=== PATIENT | female | born 1940 | race Caucasian/White ===

== ENCOUNTER 2016-12-04 08:21 | Emergency (ER) | payer MEDICARE ==
[~2016-12-04 08:21] MED LIST: Sodium Chloride 0.9% 100 ML BAG ONE
[2016-12-04 09:30] LABS: Anion Gap 13 mmol/L (10-20); BUN (Urea Nitrogen) 13 mg/dL (9.8-20.1); Calc. Creatinine Clearance 0 mL/min (70-130); Calcium 8.7 mg/dL (7.8-10.44); Carbon Dioxide 25 mmol/L (23-31); Chloride 104 mmol/L (98-107); Estimated GFR-MDRD 76; Glucose 104 mg/dL (83-110); Potassium 4.1 mmol/L (3.5-5.1); Sodium 138 mmol/L (136-145)
[2016-12-04 09:39] LABS: CKMB 0.8 ng/mL (0-6.6); Troponin I Less than 0.010 ng/mL (< 0.028)
[2016-12-04 10:00] LABS: Bilirubin Negative (Negative); Blood, Urine Small (Negative); Clarity Slightly Cloudy (Clear); Glucose, Urine (Dipstick) Negative (Negative); Leukocyte Large (Negative); Nitrite Positive (Negative); Protein, Urine (Dipstick) Negative (Neg-Trace); Specific Gravity, Urine 1.015 (1.005-1.030); pH, Urine 7.5 (5.0-9.0)
[2016-12-04 10:01] LABS: Bacteria/HPF 4+ HPF (None Seen); Crystals/HPF RARE AMORPH PHOS HPF (Negative); Hyaline Casts/LPF 0-3 HYALINE CAST LPF (0-3 Hyaline); Renal Epithelial 0-3 HPF (0-3); Transitional Epithelial 0-3 HPF (0-3)
[2016-12-04 10:30] LABS: #Basophils 0.1 thou/uL (0.0-0.2); #Eosinphils 0.2 thou/uL (0.0-0.7); #Monocytes 0.4 thou/uL (0.11-0.59); #Neutrophils 3.1 thou/uL (1.40-6.50); %Basophils 1.8 % (0.0-1.0); %Eosinophils 4.1 % (0.0-10.0); %Lymphocytes 20.6 % (21.0-51.0); %Monocytes 9.1 % (0.0-10.0); %Neutrophils 64.4 % (42.0-75.0); Hemoglobin 13.2 g/dL (12.0-16.0); Mean Corpuscular HGB CONC 34.7 g/dL (32.0-36.0); Mean Corpuscular Hemoglobin 31.8 pg (27.0-31.0); Mean Corpuscular Volume 91.4 fl (81.0-99.0); Mean Platelet Volume 5.9 fL (7.4-10.4); Platelet Count 116 thou/uL (130-400); RBC Distribution Width 11.6 % (11.5-14.5); Red Blood Cell (RBC) Count 4.15 mill/uL (4.20-5.40); White Blood Cell (WBC) Count 4.7 thou/uL (4.8-10.8)
[2016-12-04] MEDS ORDERED: cefTRIAXone\\ROCEPHIN 2 GM VIAL ONE (10:51)
--- NOTE | 2016-12-04 11:34 | RAD ---
CHEST 1 VIEW: HISTORY: Altered mental status. Dyspnea. COMPARISON: 07/19/16. FINDINGS: The cardiac silhouette is magnified and enlarged. The patient is rotated leftward. Lungs remain hy perinflated. Pulmonary vasculature is unremarkable. There is calcification in the aorta. IMPRESSION: 1. Cardiomegaly. 2. Chronic obstructive pulmonary disease. 3. Atherosclerosis. POS: [id number]
--- NOTE | 2016-12-04 12:17 | CT ---
CT HEAD NONCONTRAST: History Altered mental status. COMPARISON: 07/19/16. FINDINGS: There is no evidence of acute intracranial hemorrhage or infarct. 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 There is no mass ef fect or shift of midline structures. IMPRESSION: Chronic-type findings are stable. No acute intracranial abnormalities are demonstrated on noncontra st CT head. POS: KOFI
== END 2016-12-04 11:35 | disposition home or self-care (01) ==
LOC: MADERS 08:21
DX: N39.0 Urinary tract infection, site not specified (principal); I10 Essential (primary) hypertension; I48.91 Unspecified atrial fibrillation
CPT/HCPCS: 36415; 51701; 70450; 71010; 80048; 81003; 81015; 82553; 84484; 85025; 87077; 87086; 87186; 93005; 96365; J0696; J7050